=== PATIENT | male | born 1960 | race Caucasian/White ===

== ENCOUNTER → 2022-04-25 13:31 | Outpatient (BNVA) | payer MEDICARE, MEDICAID, SELFPAY | PROVIDERS: PCP Nurse Practitioner Primary Care; Visit Provider Orthopaedic Surgery | DX: M65.341 Trigger finger, right ring finger (principal) | CPT/HCPCS: 20550; 99202; J1100 ==

== ENCOUNTER 2022-05-01 11:13 | Outpatient (REF) | payer MEDICARE, MEDICAID, SELFPAY | END 2022-05-01 11:14 | disposition home or self-care (01) | LOC: HO.HOSX 11:13 | PROVIDERS: Visit Provider Orthopaedic Surgery | DX: Z13.89 Encounter for screening for other disorder (principal) ==

== ENCOUNTER 2022-12-18 10:50 | Outpatient (REF) | payer MEDICARE, SELFPAY ==
[2022-12-18 13:18] LABS: MANUAL DIFF FLAG NO
[2022-12-18 13:45] LABS: Basophils Absolute Auto 0.1 X10*3/uL (0.0-0.2); Basophils Percent Auto 0.6 % (0-2); Eosinophils Absolute Auto 0.3 X10*3/uL (0.0-0.4); Eosinophils Percent Auto 3.4 % (0-4); Hematocrit 46.7 % (42.0-52.0); Hemoglobin 16.2 g/dl (14.0-18.0); Imm Gran Abs Auto 0.01 X10*3/uL (0.00-0.03); Imm Gran Pct Auto 0.1 % (0.0-0.4); Lymphocytes Absolute Auto 2.6 X10*3/uL (1.2-4.9); Lymphocytes Percent Auto 32.6 % (20-40); Mean Corpuscular HGB Conc 34.7 g/dl (31.0-36.0); Mean Corpuscular Hemoglobin 34.1 pg (27.0-33.0); Mean Corpuscular Volume 98.3 fL (80.0-98.0); Mean Platelet Volume 9.5 fL (9.4-12.4); Monocytes Absolute Auto 0.9 X10*3/uL (0.1-1.2); Monocytes Percent Auto 10.9 % (2-11); Neutrophils Absolute Auto 4.2 x10*3/uL (2.0-8.3); Neutrophils Percent Auto 52.4 % (45-73); Platelet Count 295 X10*3/uL (160-400); Red Blood Count 4.75 X10*6/uL (4.60-5.80); Red Cell Distribution Width 12.1 % (11.0-16.0)
[2022-12-18 14:38] LABS: Alanine Aminotransferase 17 U/L (0-40); Albumin Level 4.4 g/dL (3.5-5.0); Alkaline Phosphatase 86 U/L (39-117); Anion Gap 14 (12-20); Aspartate Amino Transferase 21 U/L (5-37); Bilirubin Total 0.5 mg/dL (0.0-1.0); Blood Urea Nitrogen 15 mg/dL (9-16); Calcium 10.3 mg/dL (8.4-10.2); Carbon Dioxide 25 mmol/L (22-29); Chloride 107 mmol/L (96-108); Estimated Glomerular Filt Rate > 60; Glucose Random 93 mg/dL (60-115); Potassium 4.6 mmol/L (3.3-5.1); Sodium 141 mmol/L (135-145); Total Protein 7.9 g/dL (6.5-8.0)
[2022-12-19 07:23] LABS: Absolute CD3 Count 2117 cells/uL (840-3060); Absolute CD4 Count 513 cells/uL (490-1740); Absolute CD8 Count 1588 cells/uL (180-1170); Absolute Lymphocytes 2469 cells/uL (850-3900); CD4 CD8 Ratio 0.32 (0.86-5.00); Percent CD3 Cells 86 % (57-85); Percent CD4 Cells 21 % (30-61); Percent CD8 Cells 64 % (12-42)
[2022-12-20 19:18] LABS: HIV RNA PCR Qn Copies 323 copies/mL (NOT DETECTED); HIV RNA PCR Qn Log Copies 2.51 (NOT DETECTED)
[2022-12-26 10:14] LABS: RPR Rapid Plasma Reagin REACTIVE (NON-REACTIVE)
== END 2022-12-18 10:51 | disposition home or self-care (01) ==
LOC: HO.HHCL 10:50
PROVIDERS: Visit Provider Student in an Organized Health Care Education/Training Program
DX: B20 Human immunodeficiency virus [HIV] disease (principal)
CPT/HCPCS: 36415; 80053; 85025; 86359; 86360; 86592; 86593; 87536

== ENCOUNTER 2023-01-04 14:50 | Outpatient (REF) | payer MEDICARE, MEDICAID, SELFPAY ==
[2023-01-06 14:18] LABS: HIV RNA PCR Qn Copies 32 copies/mL (NOT DETECTED); HIV RNA PCR Qn Log Copies 1.51 (NOT DETECTED)
[2023-01-12 13:23] LABS: HIV 1 Integrase Proviral DNA DETECTED; HIV 1 PR RT Proviral DNA DETECTED
== END 2023-01-04 14:51 | disposition home or self-care (01) ==
LOC: HO.HHCL 14:50
PROVIDERS: Visit Provider Student in an Organized Health Care Education/Training Program
DX: B20 Human immunodeficiency virus [HIV] disease (principal)
CPT/HCPCS: 36415; 87536; 87900; 87901; 87906

== ENCOUNTER 2023-01-25 11:20 | Outpatient (REF) | payer MEDICARE, SELFPAY ==
[2023-01-29 15:24] LABS: HIV RNA PCR Qn Copies 140 copies/mL (NOT DETECTED); HIV RNA PCR Qn Log Copies 2.15 (NOT DETECTED)
[2023-02-04 12:38] LABS: HIV 1 Integrase Proviral DNA DETECTED; HIV 1 PR RT Proviral DNA DETECTED
== END 2023-01-25 11:21 | disposition home or self-care (01) ==
LOC: HO.HHCL 11:20
PROVIDERS: Visit Provider Student in an Organized Health Care Education/Training Program
DX: B20 Human immunodeficiency virus [HIV] disease (principal)
CPT/HCPCS: 36415; 87536; 87900; 87901; 87906

== ENCOUNTER 2023-04-06 14:20 | Outpatient (REF) | payer MEDICARE, SELFPAY ==
[2023-04-07 05:47] LABS: CT PCR NOT DETECTED (Not Detect.); NG PCR NOT DETECTED (Not Detect.)
[2023-04-10 13:38] LABS: N. gonorrhoeae RNA TMA, Throat NOT DETECTED
[2023-04-10 16:28] LABS: C.Trachomatis RNA TMA, Rectal NOT DETECTED; N.Gonorrhoeae RNA TMA, Rectal NOT DETECTED
== END 2023-04-06 14:21 | disposition home or self-care (01) ==
LOC: HO.HHCLNP 14:20
PROVIDERS: Visit Provider Nurse Practitioner Primary Care
DX: Z20.2 Contact with and (suspected) exposure to infections with a predominantly sexual mode of transmission (principal)
CPT/HCPCS: 0353U; 87491; 87591

== ENCOUNTER 2023-04-26 10:35 | Outpatient (REF) | payer MEDICARE, SELFPAY ==
[2023-04-26 11:24] LABS: MANUAL DIFF FLAG NO
[2023-04-26 11:42] LABS: Basophils Percent Auto 0.4 % (0-2); Eosinophils Absolute Auto 0.1 X10*3/uL (0.0-0.4); Eosinophils Percent Auto 1.1 % (0-4); Hematocrit 39.4 % (42.0-52.0); Hemoglobin 13.3 g/dl (14.0-18.0); Imm Gran Abs Auto 0.03 X10*3/uL (0.00-0.03); Imm Gran Pct Auto 0.4 % (0.0-0.4); Lymphocytes Absolute Auto 1.6 X10*3/uL (1.2-4.9); Lymphocytes Percent Auto 19.6 % (20-40); Mean Corpuscular HGB Conc 33.8 g/dl (31.0-36.0); Mean Corpuscular Volume 103.7 fL (80.0-98.0); Monocytes Absolute Auto 0.7 X10*3/uL (0.1-1.2); Monocytes Percent Auto 8.2 % (2-11); Neutrophils Absolute Auto 5.6 x10*3/uL (2.0-8.3); Neutrophils Percent Auto 70.3 % (45-73); Platelet Count 307 X10*3/uL (160-400); Red Cell Distribution Width 12.6 % (11.0-16.0)
[2023-04-26 12:06] LABS: Alanine Aminotransferase 17 U/L (0-40); Albumin Level 4.1 g/dL (3.5-5.0); Alkaline Phosphatase 94 U/L (39-117); Anion Gap 12 (12-20); Aspartate Amino Transferase 21 U/L (5-37); Bilirubin Total 0.5 mg/dL (0.0-1.0); Blood Urea Nitrogen 21 mg/dL (9-16); Calcium 9.5 mg/dL (8.4-10.2); Carbon Dioxide 26 mmol/L (22-29); Chloride 106 mmol/L (96-108); Estimated Glomerular Filt Rate > 60; Glucose Random 107 mg/dL (60-115); Potassium 3.7 mmol/L (3.3-5.1); Sodium 140 mmol/L (135-145); Total Protein 7.8 g/dL (6.5-8.0)
[2023-04-26 12:29] LABS: HBS Num1 8.99 mIU/mL (0-7.99); HBc Num1 5.62 S/CO (0.00-0.79); HBsAGNum1 0.37 S/CO (0.00-0.99); Hepatitis B Surface Antigen Negative (Negative); ~Hepatitis C Antibody Nonreactive (Nonreactive)
[2023-04-26 13:55] LABS: HBS Num2 8.17 mIU/mL (0-7.99); HBS Num3 8.29 mIU/mL (0-7.99); HBc Num2 5.67 S/CO; HBc Num3 5.39 S/CO; Hepatitis B Core Antibody Reactive (Nonreactive); ~Hepatitis B Surface Antibody GRAYZONE (Nonreactive)
[2023-04-27 14:19] LABS: Absolute CD3 Count 1311 cells/uL (840-3060); Absolute CD4 Count 418 cells/uL (490-1740); Absolute CD8 Count 888 cells/uL (180-1170); Absolute Lymphocytes 1559 cells/uL (850-3900); CD4 CD8 Ratio 0.47 (0.86-5.00); Percent CD3 Cells 84 % (57-85); Percent CD4 Cells 27 % (30-61); Percent CD8 Cells 57 % (12-42)
[2023-04-27 14:42] LABS: HIV RNA PCR Qn Copies <20 DETECTED copies/mL (NOT DETECTED); HIV RNA PCR Qn Log Copies <1.30 DETECTED (NOT DETECTED)
[2023-04-27 15:04] LABS: Rubella IgG Antibody 2.61 Index; Rubeola IgG (Measles) >300.00 AU/mL
[2023-04-27 16:00] LABS: TSH reflex Free T4 0.66 uIU/mL (0.32-4.0)
[2023-04-27 21:14] LABS: Hepatitis B Core Antibody IgM NON-REACTIVE (NON-REACTIVE)
[2023-05-07 20:18] LABS: HIV 1 Integrase Proviral DNA DETECTED; HIV 1 PR RT Proviral DNA DETECTED
== END 2023-04-26 10:36 | disposition home or self-care (01) ==
LOC: HO.HHCL 10:35
PROVIDERS: Visit Provider Student in an Organized Health Care Education/Training Program
DX: B20 Human immunodeficiency virus [HIV] disease (principal)
CPT/HCPCS: 36415; 80053; 84443; 85025; 86359; 86360; 86704; 86705; 86706; 86735; 86762; 86765; 86803; 87340; 87536; 87900; 87901; 87906

== ENCOUNTER 2023-05-16 10:49 | Outpatient (REF) | payer MEDICARE, MEDICAID, SELFPAY ==
[2023-05-16 15:41] LABS: Folate 5.8 ng/mL (> or = 4.0); Vitamin B12 635 pg/mL (200-900)
== END 2023-05-16 10:50 | disposition home or self-care (01) ==
LOC: HO.HHCL 10:49
PROVIDERS: Visit Provider Student in an Organized Health Care Education/Training Program
DX: D75.89 Other specified diseases of blood and blood-forming organs (principal)
CPT/HCPCS: 36415; 82607; 82746

== ENCOUNTER 2023-08-24 11:07 | Outpatient (AMB) | payer OTHER, MEDICAID, SELFPAY ==
--- NOTE | 2023-08-24 07:50 | A.OFFVIS_ITS ---
Intake Visit Reasons: Current Smoker Allergies No Known Allergies [No Known Allergies*] Allergy (Unverified 04/25/22 14:33) HPI HPI Current Smoker: Details: Initial visit for this 63yo smoker with a 24PYH. Patient has been smoking since age 14yo for 48 years at 1/2ppd. . Denies marijuana use. Denies second hand smoke exposure. Denies exposure to chemicals or substances like asbestos. . Reports family history of lung cancer. Father age 63. Denies personal history of cancers. Denies chest CT in last year. . Denies recent travel outside the [place]. Denies recent respiratory illness or recent hospitalization for respiratory issues. Denies testing positive for COVID. Admits receiving COVID Vaccine. x 4. . Denies fever, chills, new/worsening cough, hemoptysis, hoarseness or dysphagia. Denies significant chest pain, significant dyspnea or unintentional weight loss. Patient Lung Cancer Screening Questionnaire reviewed with patient by provider. . Shared Decision Making Completed. Patient meets criteria. Discussed in detail with patient, the risk vs benefit of LDCT screening. Patient consents to proceed with scan. Discussed smoking cessation. [facility] Medical History (Updated 08/24/23 @ 11:19 by Alexandra Preston PA-C) HIV (human immunodeficiency virus infection) COPD (chronic obstructive pulmonary disease) Nicotine dependence, cigarettes, uncomplicated Surgical History (Updated 08/24/23 @ 11:17 by Alexandra Preston PA-C) History of surgery on lower extremity History of appendectomy History of colonoscopy Family History (Updated 08/24/23 @ 11:19 by Alexandra Preston PA-C) Father Lung cancer Social History (Updated 04/25/22 @ 14:35 by Tiffanie Kelly [facility]) Current occupational status: employed and disabled Current occupation: rt hand/ cashier parking lot Assessment & Plan Assessment & Plan (1) Nicotine dependence, cigarettes, uncomplicated: Comment: (onset 18yo, onset 14, 1/2ppd x 48yrs, 24pyh) Code(s): F17.210 - Nicotine dependence, cigarettes, uncomplicated Category: Medical Plan: - SDM visit completed today in office. - Patient meets criteria for LDCT for lung cancer screening purposes and is asymptomatic. - Smoking cessation counseling offered. Patients can always call [phone]. - Will arrange for a LDCT scan of the chest for screening purposes at [facility]. - Risks, benefits, and alternatives were discussed in detail and the patient agrees to proceed. - Risks discussed include but are not limited to: radiation exposure, anxiety during testing and while awaiting results, false negatives, false positives and possibility of additional intervention such as further imaging or surgical procedures for benign disease. - Benefits are obviously detection of lung cancer at an early stage which can lead to improved outcomes. - Discussed the importance of screening program compliance with adherence to yearly LDCT scan as scheduled - or sooner interval scans for personalized screening regimen. - Discussed follow up plan. Our office will send a letter discussing results and if needed set up phone call and office visit based on CT findings. - Patient educated on results categorization and the management decisions for suspicious findings potentially found on the screening LDCT scan. Any patient with a Lung RADS score of 3 or 4 will be reviewed by a multidisciplinary team at [facility] to form a plan of action in regards to scan findings. - If further work up is warranted for a suspicious lung finding this will be followed by the Lung Cancer Screening program in conjunction with the Thoracic Surgery Department at [facility]. - A copy of the office note and LDCT will be sent to the patient's PCP - as well as documentation on any associated further plans of care. - Incidental findings on LDCT are the PCP's responsibility. These findings are indicated with an S finding on the LDCT Assessment. A note discussing the findings will be sent to the PCP who is then responsible for further management. - All questions answered.? Coding Level of Care Code Lung Cancer Screening G0296 Diagnoses Nicotine dependence, cigarettes, uncomplicated F17.210
== END 2023-08-24 11:37 | disposition home or self-care (01) ==
PROVIDERS: PCP Nurse Practitioner Primary Care; Referring Provider Nurse Practitioner Primary Care; Visit Provider Physician Assistant Medical
DX: F17.210 Nicotine dependence, cigarettes, uncomplicated (principal)
CPT/HCPCS: G0296

== ENCOUNTER 2023-08-24 11:20 | Outpatient (REF) | payer OTHER, SELFPAY ==
--- NOTE | ~2023-08-24 | CT_ITS ---
EXAMINATION: CT LUNG SCREENING CLINICAL INFORMATION: Nicotine dependence, cigarettes, uncomplicated. The patient is a current smoker with a 44 pack-year history of smoking. COMPARISON: None available. TECHNIQUE: Multidetector volumetric CT imaging of the chest is performed on a Siemens SOMATOM Definition scanner without contrast using low dose technique. Additional 2D coronal and sagittal reformatted images and axial 3D maximum intensity projection (MIP) images are generated on the CT workstation. This CT examination was performed using dose optimization techniques as appropriate, variously including the following: *Automated exposure control *Adjustment of mA and/or kV according to patient size (this includes techniques or standardized protocols for targeted exams where dose is matched to indication/reason for exam; i.e. extremities or head) *Use of iterative reconstruction technique TOTAL EXAM DLP: 45 mGy-cm. CTDIvol: 1.28 mGy. FINDINGS: PULMONARY NODULES: There is a 3 mm right apical nodule (5:68). LUNGS: Lungs bilaterally symmetrically expanded. There is zncjatky-ep-[id number] bronchial thickening present without bronchiectasis. There is mild emphysema. There is tree-in-bud formation in the right upper lobe (5:229) as well as the right middle lobe (for example 5:78). The largest single nodule is about 4 mm (5:229). No effusion or pneumothorax. Central airways patent. MEDIASTINUM: No mediastinal, hilar or axillary adenopathy or free fluid collection. CORONARY ARTERY CALCIFICATION: Moderate. THYROID GLAND: Unremarkable to the extent seen. CARDIOVASCULAR STRUCTURES: Aortic and heart size normal. No pericardial effusion. CHEST WALL/AXILLA: Unremarkable. UPPER ABDOMEN: Included portions of the solid organs in the upper abdomen unremarkable on noncontrast imaging. OSSEOUS STRUCTURES: No suspicious focal findings. CT/CT lung screening IMPRESSION: 1. Hggncdns-im-geicbb bronchial thickening with tree-in-bud formation in the right upper lobe and right middle lobe. 2. There is a 3 mm right apical nodule. 3. Incidental findings (s category): No significant incidental findings. ASSESSMENT: 1. Lung-RADS Category 2: Benign appearance or behavior of nodules. N/A RECOMMENDATION: Continued routine annual low-dose CT lung screening in 1 year is recommended. An order for CT CHEST LOW DOSE CANCER SCREENING ([id number]) can be placed.
[2023-08-24 12:07] LABS: MANUAL DIFF FLAG NO
[2023-08-24 12:22] LABS: Estimated Average Glucose 117 mg/dL; Hemoglobin A1c % 5.7 % (<6.0)
[2023-08-24 12:33] LABS: Basophils Absolute Auto 0.1 X10*3/uL (0.0-0.2); Basophils Percent Auto 1.1 % (0-2); Eosinophils Absolute Auto 0.4 X10*3/uL (0.0-0.4); Eosinophils Percent Auto 5.9 % (0-4); Hematocrit 40.6 % (42.0-52.0); Hemoglobin 13.8 g/dl (14.0-18.0); Imm Gran Abs Auto 0.01 X10*3/uL (0.00-0.03); Imm Gran Pct Auto 0.2 % (0.0-0.4); Lymphocytes Absolute Auto 2.2 X10*3/uL (1.2-4.9); Lymphocytes Percent Auto 34.4 % (20-40); Mean Corpuscular Hemoglobin 32.7 pg (27.0-33.0); Mean Corpuscular Volume 96.2 fL (80.0-98.0); Mean Platelet Volume 8.7 fL (9.4-12.4); Monocytes Absolute Auto 0.7 X10*3/uL (0.1-1.2); Monocytes Percent Auto 10.4 % (2-11); Neutrophils Absolute Auto 3.1 x10*3/uL (2.0-8.3); Platelet Count 387 X10*3/uL (160-400); Red Blood Count 4.22 X10*6/uL (4.60-5.80); Red Cell Distribution Width 13.2 % (11.0-16.0); White Blood Count 6.5 X10*3/uL (4.8-10.8)
[2023-08-24 12:54] LABS: TSH reflex Free T4 0.76 uIU/mL (0.32-4.0)
[2023-08-24 13:13] LABS: Prostate Specific Antigen 1.56 ng/mL (<0.05-4.0); Vitamin B12 462 pg/mL (200-900)
[2023-08-28 16:53] LABS: Testosterone, Free 35.9 pg/mL (35.0-155.0); Testosterone, Total 294 ng/dL (250-1100)
== END 2023-08-24 11:21 | disposition home or self-care (01) ==
LOC: HO.CT 11:20
PROVIDERS: PCP Nurse Practitioner Primary Care; Visit Provider Physician Assistant Medical
DX: Z12.2 Encounter for screening for malignant neoplasm of respiratory organs (principal); Z12.5 Encounter for screening for malignant neoplasm of prostate; F17.210 Nicotine dependence, cigarettes, uncomplicated; R63.4 Abnormal weight loss; D53.9 Nutritional anemia, unspecified; R39.15 Urgency of urination; R79.89 Other specified abnormal findings of blood chemistry
CPT/HCPCS: 36415; 71271; 82607; 82746; 83036; 84153; 84402; 84403; 84443; 85025; G0296

== ENCOUNTER 2023-11-27 16:20 | Outpatient (REF) | payer OTHER, MEDICAID, SELFPAY ==
[2023-12-01 10:54] LABS: Anatomic Location NOT GIVEN; Monkeypox virus DNA PCR Qual NOT DETECTED; Orthopox virus DNA PCR Qual NOT DETECTED; Specimen Type LESION SWAB
[2023-12-02 00:34] LABS: C.Trachomatis RNA TMA, Rectal NOT DETECTED; N.Gonorrhoeae RNA TMA, Rectal NOT DETECTED
== END 2023-11-27 16:21 | disposition home or self-care (01) ==
LOC: HO.HHCLNP 16:20
PROVIDERS: Visit Provider Nurse Practitioner Primary Care
DX: R85.610 Atypical squamous cells of undetermined significance on cytologic smear of anus (ASC-US) (principal); L98.9 Disorder of the skin and subcutaneous tissue, unspecified; B20 Human immunodeficiency virus [HIV] disease
CPT/HCPCS: 87491; 87591; 87593; 87624; 88112

== ENCOUNTER 2024-01-24 15:06 | Outpatient (REF) | payer OTHER, MEDICAID, SELFPAY ==
[2024-01-24 16:14] LABS: MANUAL DIFF FLAG NO
[2024-01-24 16:16] LABS: Basophils Percent Auto 0.4 % (0-2); Eosinophils Percent Auto 0.6 % (0-4); Hematocrit 38.9 % (42.0-52.0); Hemoglobin 13.4 g/dl (14.0-18.0); Imm Gran Abs Auto 0.01 X10*3/uL (0.00-0.03); Imm Gran Pct Auto 0.2 % (0.0-0.4); Lymphocytes Absolute Auto 1.1 X10*3/uL (1.2-4.9); Lymphocytes Percent Auto 22.1 % (20-40); Mean Corpuscular HGB Conc 34.4 g/dl (31.0-36.0); Mean Corpuscular Hemoglobin 33.2 pg (27.0-33.0); Mean Corpuscular Volume 96.3 fL (80.0-98.0); Mean Platelet Volume 8.3 fL (9.4-12.4); Monocytes Absolute Auto 0.8 X10*3/uL (0.1-1.2); Neutrophils Absolute Auto 2.9 x10*3/uL (2.0-8.3); Neutrophils Percent Auto 60.7 % (45-73); Platelet Count 446 X10*3/uL (160-400); Red Blood Count 4.04 X10*6/uL (4.60-5.80); White Blood Count 4.8 X10*3/uL (4.8-10.8)
[2024-01-24 16:17] LABS: Basophils Percent Auto 0.6 % (0-2); Eosinophils Percent Auto 0.8 % (0-4); Hematocrit 39.2 % (42.0-52.0); Hemoglobin 13.2 g/dl (14.0-18.0); Imm Gran Abs Auto 0.01 X10*3/uL (0.00-0.03); Imm Gran Pct Auto 0.2 % (0.0-0.4); Lymphocytes Absolute Auto 1.2 X10*3/uL (1.2-4.9); Lymphocytes Percent Auto 23.5 % (20-40); Mean Corpuscular HGB Conc 33.7 g/dl (31.0-36.0); Mean Corpuscular Hemoglobin 32.5 pg (27.0-33.0); Mean Corpuscular Volume 96.6 fL (80.0-98.0); Mean Platelet Volume 8.4 fL (9.4-12.4); Monocytes Absolute Auto 0.8 X10*3/uL (0.1-1.2); Monocytes Percent Auto 16.5 % (2-11); Neutrophils Absolute Auto 2.9 x10*3/uL (2.0-8.3); Neutrophils Percent Auto 58.4 % (45-73); Platelet Count 438 X10*3/uL (160-400); Red Blood Count 4.06 X10*6/uL (4.60-5.80); Red Cell Distribution Width 14.1 % (11.0-16.0)
[2024-01-24 17:04] LABS: Alanine Aminotransferase 16 U/L (0-40); Albumin Level 3.7 g/dL (3.5-5.0); Alkaline Phosphatase 97 U/L (39-117); Anion Gap 13 (12-20); Aspartate Amino Transferase 23 U/L (5-37); Bilirubin Total 0.2 mg/dL (0.0-1.0); Blood Urea Nitrogen 17 mg/dL (9-16); Calcium 8.9 mg/dL (8.4-10.2); Carbon Dioxide 22 mmol/L (22-29); Chloride 104 mmol/L (96-108); Cholesterol 116 mg/dL (<200); Estimated Glomerular Filt Rate > 60; Glucose Random 133 mg/dL (60-115); HDL Cholesterol 26 mg/dL (>40); LDL Cholesterol Calculated 77 mg/dL (<100); Potassium 4.3 mmol/L (3.3-5.1); Sodium 135 mmol/L (135-145); Total Protein 7.8 g/dL (6.5-8.0); Triglycerides 65 mg/dL (<150)
[2024-01-24 17:12] LABS: Vitamin B12 362 pg/mL (200-900)
[2024-01-24 17:15] LABS: TSH reflex Free T4 0.26 uIU/mL (0.32-4.0)
[2024-01-24 19:31] LABS: Free T4 (Free Thyroxine) 0.93 ng/dL (0.71-1.85)
[2024-01-26 07:48] LABS: HIV RNA PCR Qn Copies 98900 copies/mL (NOT DETECTED)
[2024-01-28 15:29] LABS: RPR Rapid Plasma Reagin REACTIVE (NON-REACTIVE)
[2024-01-30 00:08] LABS: Absolute CD3 Count 907 cells/uL (840-3060); Absolute CD4 Count 247 cells/uL (490-1740); Absolute CD8 Count 665 cells/uL (180-1170); Absolute Lymphocytes 1052 cells/uL (850-3900); CD4 CD8 Ratio 0.37 (0.86-5.00); Percent CD3 Cells 86 % (57-85); Percent CD4 Cells 23 % (30-61); Percent CD8 Cells 63 % (12-42)
[2024-01-31 12:43] LABS: C.Trachomatis RNA TMA, Rectal NOT DETECTED; N.Gonorrhoeae RNA TMA, Rectal NOT DETECTED
[2024-01-31 12:47] LABS: Testosterone, Free 17.5 pg/mL (35.0-155.0); Testosterone, Total 139 ng/dL (250-1100)
== END 2024-01-24 15:07 | disposition home or self-care (01) ==
LOC: HO.HHCL 15:06
PROVIDERS: Nurse Practitioner Primary Care; Visit Provider Student in an Organized Health Care Education/Training Program
DX: Z00.00 Encounter for general adult medical examination without abnormal findings (principal); E29.1 Testicular hypofunction; G62.9 Polyneuropathy, unspecified; L98.9 Disorder of the skin and subcutaneous tissue, unspecified; B20 Human immunodeficiency virus [HIV] disease; D75.89 Other specified diseases of blood and blood-forming organs
CPT/HCPCS: 36415; 80053; 80061; 82607; 84402; 84403; 84439; 84443; 85025; 86359; 86360; 86592; 86593; 87491; 87536; 87591

== ENCOUNTER 2024-02-11 16:23 | Outpatient (REF) | payer OTHER, MEDICAID, SELFPAY ==
[2024-02-11 17:48] LABS: MANUAL DIFF FLAG NO
[2024-02-11 18:35] LABS: Basophils Percent Auto 0.3 % (0-2); Eosinophils Absolute Auto 0.1 X10*3/uL (0.0-0.4); Eosinophils Percent Auto 1.3 % (0-4); Imm Gran Abs Auto 0.02 X10*3/uL (0.00-0.03); Imm Gran Pct Auto 0.3 % (0.0-0.4); Lymphocytes Absolute Auto 4.2 X10*3/uL (1.2-4.9); Lymphocytes Percent Auto 55.5 % (20-40); Mean Corpuscular HGB Conc 34.2 g/dl (31.0-36.0); Mean Corpuscular Hemoglobin 32.1 pg (27.0-33.0); Mean Corpuscular Volume 93.8 fL (80.0-98.0); Mean Platelet Volume 9.1 fL (9.4-12.4); Monocytes Absolute Auto 0.7 X10*3/uL (0.1-1.2); Monocytes Percent Auto 8.5 % (2-11); Neutrophils Absolute Auto 2.6 x10*3/uL (2.0-8.3); Neutrophils Percent Auto 34.1 % (45-73); Platelet Count 331 X10*3/uL (160-400); Red Blood Count 4.05 X10*6/uL (4.60-5.80); Red Cell Distribution Width 13.5 % (11.0-16.0); White Blood Count 7.6 X10*3/uL (4.8-10.8)
[2024-02-11 19:02] LABS: Alanine Aminotransferase 10 U/L (0-40); Albumin Level 3.2 g/dL (3.5-5.0); Alkaline Phosphatase 92 U/L (39-117); Aspartate Amino Transferase 21 U/L (5-37); Bilirubin Direct < 0.2 mg/dL (0.0-0.5); Bilirubin Total 0.2 mg/dL (0.0-1.0); Total Protein 7.6 g/dL (6.5-8.0)
== END 2024-02-11 16:24 | disposition home or self-care (01) ==
LOC: HO.HHCL 16:23
PROVIDERS: Visit Provider Nurse Practitioner Family
DX: R10.30 Lower abdominal pain, unspecified (principal)
CPT/HCPCS: 36415; 80076; 85025